=== PATIENT | female | born 1945 | race Caucasian/White ===

== ENCOUNTER → 2016-10-12 | Outpatient (CLI) | payer OTHER, MEDICAID ==
[~2016-10-12] MED LIST: HYDROCODONE BIT1 T11 PO; PRISTIQ50 MG PO; SIMVASTATIN80 MG PO; TOPAMAX50 MG PO
== END | disposition home or self-care (01) ==
LOC: RAD 15:37
DX: R06.02 Shortness of breath (principal); I10 Essential (primary) hypertension; R05 Cough; E78.00 Pure hypercholesterolemia, unspecified; F17.200 Nicotine dependence, unspecified, uncomplicated

== ENCOUNTER → 2018-02-01 | Outpatient (CLI) | payer MEDICARE, MEDICAID | END | disposition home or self-care (01) | LOC: RAD 07:48 | DX: M25.551 Pain in right hip (principal); R06.02 Shortness of breath; M54.5 Low back pain ==

== ENCOUNTER → 2020-02-09 | Outpatient (CLI) | payer OTHER, MEDICAID | END | disposition home or self-care (01) | LOC: MAMMO 07:22 | DX: Z12.31 Encounter for screening mammogram for malignant neoplasm of breast (principal) ==

== ENCOUNTER → 2020-03-12 | Outpatient (CLI) | payer OTHER, MEDICAID | END | disposition home or self-care (01) | LOC: RAD 09:50 | DX: R06.02 Shortness of breath (principal) ==

== ENCOUNTER → 2021-06-01 | Outpatient (CLI) | payer OTHER, MEDICAID ==
[~2021-06-01] MED LIST changes: +APPLE CIDER VI300 MG PO; +AUSTEDO PO; +BUPROPION HCL150 M3 PO; +LIPITOR40 MG PO; +MAXEPA500 MG PO; +METOPROLOL SUCC25 M2 PO; +NAPROXEN375 MG PO; +VITAMIN D325 MCG PO; +ZETIA10 MG PO
== END | disposition home or self-care (01) ==
LOC: MAMMO 05-09 11:00
PROVIDERS: ATTEND Nurse Practitioner Family
DX: Z12.31 Encounter for screening mammogram for malignant neoplasm of breast (principal)

== ENCOUNTER → 2023-04-05 | Outpatient (CLI) | payer MEDICARE, MEDICAID | END | disposition home or self-care (01) | LOC: RAD 11:06 | PROVIDERS: ATTEND Nurse Practitioner | DX: M17.12 Unilateral primary osteoarthritis, left knee (principal); M54.42 Lumbago with sciatica, left side; M47.817 Spondylosis without myelopathy or radiculopathy, lumbosacral region; M51.36 Other intervertebral disc degeneration, lumbar region ==